=== PATIENT | male | born 1950 | race African-American/Black ===

== ENCOUNTER 2020-11-05 08:34 | Inpatient (IN) | payer OTHER ==
[~2020-11-05] VITALS: Ht 172.7 cm; Wt 113.4 kg
[2020-11-05 08:36] VITALS: BP 208/75
[2020-11-05 09:01] LABS: BE(vivo) -1.7 mmol/L (-2 to +3); HCO3 20.9 mmol/L (22.0-26.0); PCO2 29.7 mmHg (35.0-45.0); PO2 50.7 mmHg (80.0-100.0); pH 7.465 (7.360-7.450); sO2 88.5 % (92.0-98.0)
[2020-11-05 09:03] LABS: ABSOLUTE NEUTROPHILS 10.4 thou/uL (1.4-8.2); BASOPHILS 0.4 % (0.0-2.0); EOSINOPHILS 0.5 % (0.0-3.0); HEMATOCRIT 41.4 % (42.0-52.0); HEMOGLOBIN 13.5 gm/dL (14.0-18.0); LYMPHOCYTES 6.9 % (24.0-44.0); MCH 28.8 pg (26.0-34.0); MCHC 32.5 g/dL (28.0-37.0); MCV 88.6 fL (80.0-100.0); MONOCYTES 0.5 % (1.0-8.0); PLATELET COUNT 213 thou/uL (150-400); POLYS 91.7 % (36.0-66.0); RBC 4.67 mil/uL (4.50-6.00); RDW 13.7 % (10.5-14.5); WBC 11.4 thou/uL (4.0-11.0)
[2020-11-05 10:29] LABS: CALCIUM 8.9 mg/dL (8.5-10.1); CREATININE 1.6 mg/dL (0.7-1.3); POTASSIUM 3.8 mmol/L (3.5-5.1)
[2020-11-05 10:39] LABS: ALBUMIN 3.9 g/dL (3.4-5.0); DIRECT BILIRUBIN 0.4 mg/dL (<0.1-0.2); TOTAL BILIRUBIN 1.1 mg/dL (0.2-1.0); TOTAL PROTEIN 8.3 g/dL (6.4-8.2); TROPONIN-I 0.17 ng/mL (<0.06)
[2020-11-05 10:55] LABS: URINE BILIRUBIN NEGATIVE (Negative); URINE BLOOD 3+ (Negative); URINE CLARITY SL CLOUDY; URINE COLOR YELLOW; URINE GLUCOSE-RANDOM* NEGATIVE (Negative); URINE KETONES TRACE (Negative); URINE PROTEIN (DIPSTICK) 2+ (Negative); URINE UROBILINOGEN 0.2 E.U./dl (0.2-1.0)
[2020-11-05 10:57] LABS: URINE LEUKOCYTES-REFLEX 1+ (Negative); URINE NITRITE-REFLEX POSITIVE (Negative)
--- NOTE | 2020-11-05 11:07 | NUR ---
PATIENT , MARIBEL CALLED ASKING FOR UPDATE, NOTIFIED OF CURRENT STATUS.
[2020-11-05 11:08] LABS: CASTS None Seen /LPF (None Seen); CRYSTALS None Seen /LPF (None Seen); SQUAMOUS 0-3 Few /LPF (0-3)
[2020-11-05] MEDS ORDERED: JANUVIA100 MG PO (11:08)
[2020-11-05] MEDS ORDERED: COZAAR 25 MG TA25 MG PO (11:08)
[2020-11-05] MEDS ORDERED: HYDROCHLOROTH12.5 M2 PO (11:09)
[2020-11-05] MEDS ORDERED: SIMVASTATIN80 MG PO (11:09)
[2020-11-05 11:10] LABS: URINE RBC 3-10 Few /HPF (0-2); URINE WBC-REFLEX 0-5 Rare /HPF (0-5)
[2020-11-05] MEDS ORDERED: ASA81BEC PO (11:10)
[2020-11-05] MEDS ORDERED: VITAMIN D325 MC5 PO (11:11)
[2020-11-05 12:11] VITALS: BP 132/78
[2020-11-05 12:21] VITALS: BP 146/80
--- NOTE | 2020-11-05 12:50 | NUR ---
PT ORIENTED TO ROOM AND UNIT, BED LOW AND LOCKED, SIDE RAILS UPX3, CALL LIGHT IN REACH, TELE APPLIED. WILL CONTINUE TO ASSESS.
[2020-11-05] MEDS ORDERED: PLAVIX 75 MG TA75 MG PO (15:20)
--- NOTE | 2020-11-05 15:29 | EKG ---
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 NAVARRO : 1950 Requested By: Antoinette Trent Order Number: [id number] MD: Chadwick Bowen Measurements Intervals [place] Rate: 117 P: 0 HI: 119 QRS: 30 QRSD: 77 T: 53 QT: 359 QTc: 501 Interpretive Statements Sinus tachycardia Probable left atrial enlargement Borderline ST depression, anterolateral leads Prolonged QT interval No previous ECG available for comparison Electronically Signed On 11-05-2020 15:29:34 CDT by Chadwick Bowen [email or web address] <ELECTRONICALLY SIGNED> By: Chadwick Bowen MD, [facility] 11/05/20 1529 0840 0840 Chadwick Bowen MD, FACCindy /EPI
[2020-11-05 16:11] LABS: HEMATOCRIT 39.4 % (42.0-52.0); HEMOGLOBIN 12.6 gm/dL (14.0-18.0); MCV 87.6 fL (80.0-100.0); RBC 4.5 mil/uL (4.50-6.00); RDW 13.5 % (10.5-14.5)
[2020-11-05 16:19] LABS: WBC 30.4 thou/uL (4.0-11.0)
[2020-11-05 16:28] LABS: APTT 22.7 Seconds (24.5-32.8); INR 1.05; PROTIME 11.4 Seconds (9.3-11.4)
--- NOTE | 2020-11-05 17:02 | NUR ---
START HEPARIN GTT AND PT WILL BE NPO AFTER MIDNIGHT FOR HEART CATH IN THE AM.
[2020-11-05 20:14] VITALS: BP 127/70
[2020-11-06] VITALS (16 sets, daily range): BP systolic 120–186; BP diastolic 61–84
[2020-11-06 03:44] LABS: CHOLESTEROL 125 mg/dL (<200); HDL CHOLESTEROL 63 mg/dL (>40); LDL CHOLESTEROL 53 mg/dL (<100); TRIGLYCERIDE 45 mg/dL (<150); VLDL 9 mg/dL (<40)
[2020-11-06 04:11] LABS: SERUM ASSESSMENT Clear; TROPONIN-I 0.69 ng/mL (<0.06)
--- NOTE | 2020-11-06 07:43 | NUR ---
PROGRESS PT A/O X 4. NOT OOB THHIS SHIFT BUT ABLE TO AMBULATE INDEPENDENTLY NORMALLY. HEPARIN GTT INFUSING AT 10ML/U/HR APTT HANSA AT 2330 AND RESULTS WAS 77 DRIP DECREASED BY 2ML/U/HR NEXT APTT AT 030. IV ANTIBIOTICS GIVEN ORDERED. HANCOCK IN PLACE DRAINING [place] AMOUNT OF URINE. NPO AT MIDNIGHT DENIES PAIN TELEMETRY INTACT READING SR. PLAN TO GO TO HALL TENDER TODAY FOR PCI.
[2020-11-06 07:47] LABS: HEMATOCRIT 36.8 % (42.0-52.0); HEMOGLOBIN 11.6 gm/dL (14.0-18.0); MCH 27.6 pg (26.0-34.0); MCHC 31.5 g/dL (28.0-37.0); MCV 87.4 fL (80.0-100.0); PLATELET COUNT 198 thou/uL (150-400); RBC 4.21 mil/uL (4.50-6.00); RDW 13.6 % (10.5-14.5); WBC 29.5 thou/uL (4.0-11.0)
[2020-11-06 11:12] LABS: ABSOLUTE NEUTROPHILS 28.3 thou/uL (1.4-8.2); ANISOCYTOSIS SLIGHT; POIKILOCYTOSIS SLIGHT
--- NOTE | 2020-11-06 11:38 | 2DMMODE ---
[facility] [place] [address] 2 D/M-MODE ECHOCARDIOGRAM Name: KENNETH ENGLISH Room #: 356-P ADM IN M.R.#: [id number] Admission: 11/05/20 Attend Phys: Abad Booth MD Discharge: Date of : 48 Report #: [id number] THIS REPORT FOR: cc: Demetrius Singh MD, Steven A. MD Santiago, Patrick MD [facility] ~ APPROVED REPORT Study performed: 11/06/2020 09:15:29 EXAM: Comprehensive 2D, Doppler, and color-flow Echocardiogram Patient Location: Bedside Room #: 356 Status: routine BSA: 2.22 HR: 64 bpm BP: 132/74 mmHg Rhythm: NSR Other Information Study Quality: Adequate Indications Diabetes Dyspnea Elevated Troponin Hypertension/HDD 2D Dimensions IVSd: 8.56 (7-11mm) LVOT Diam: 21.84 (18-24mm) LVDd: 52.13 mm PWd: 10.40 (7-11mm) Ascending Ao: 37.22 (22-36mm) LVDs: 33.81 (25-40mm) Left Atrium: 36.90 (27-40mm) Aortic Root: 26.91 mm IVC: 11.00 mm Volumes Left Atrial Volume (Systole) Single Plane 4CH: 62.35 mL Single Plane 2CH: 38.78 mL LA ESV Index: 25.00 mL/m2 Aortic Valve AoV Peak Silvino.: 0.96 m/s AO Peak Gr.: 3.72 mmHg LVOT Max P.41 mmHg [facility] [address] [place] [address] 2 D/M-MODE ECHOCARDIOGRAM Name: KENNETH ENGLISH Room #: 356-P [facility] IN Nuzhat.#: [id number] Admission: 11/05/20 Attend Phys: Abad Booth MD Discharge: Date of : 48 Report #: [id number] LVOT Max V: 0.92 m/s BILLY Vmax: 3.58 cm2 Mitral Valve E/A Ratio: 0.8 MV Decel. Time: 206.60 ms MV E Max Silvino.: 0.83 m/s MV A Silvino.: 1.08 m/s MV PHT: 59.91 ms IVRT: 106.11 ms Pulmonary Valve PV Peak Silvino.: 0.64 m/s PV Peak Gr.: 1.62 mmHg Pulmonary Vein P Vein S: 0.61 m/s P Vein A: 0.25 m/s P Vein D: 0.34 m/s P Vein A Dur.: 92.3 msec P Vein S/D Ratio: 1.79 Left Ventricle The left ventricle is normal size. There is normal LV segmental wall motion. There is normal left ventricular wall thickness. Left ventricular systolic function is normal. The left ventricular ejection fraction is within the normal range. LVEF is 60-65%. Grade I - abnormal relaxation pattern. Right Ventricle The right ventricle is normal size. The right ventricular systolic function is normal. Atria The left atrium size is normal. The right atrium size is normal. Aortic Valve The aortic valve is normal in structure. No aortic regurgitation is present. There is no aortic valvular stenosis. Mitral Valve The mitral valve is normal in structure. There is no mitral valve regurgitation noted. No evidence of mitral valve stenosis. Tricuspid Valve The tricuspid valve is normal in structure. There is no tricuspid valve regurgitation noted. [facility] [place] [address] 2 D/M-MODE ECHOCARDIOGRAM Name: KENNETH ENGLISH Room #: 356-P ADM IN M.R.#: [id number] Admission: 11/05/20 Attend Phys: Abad Booth MD Discharge: Date of : 48 Report #: [id number] Pulmonic Valve The pulmonary valve is normal in structure. There is no pulmonic valvular regurgitation. Great Vessels The aortic root is normal in size. IVC is normal in size and collapses >50% with inspiration. Pericardium There is no pericardial effusion. <Conclusion> Normal left ventricular size/wall thickness Ejection fraction 60-65% Normal right ventricular size/function Normal atrial size Color-flow Doppler study was performed of the aortic/mitral/tricuspid/pulmonary valve. Normal aortic/mitral valve structure and function No tricuspid valve insufficiency Normal aortic root size No pericardial effusion. <ELECTRONICALLY SIGNED> By: Chadwick Bowen MD, FACC 11/06/20 1138 1138 1138 Chadwick Bowen MD, FACC /INF
[2020-11-06 11:49] LABS: CALCIUM 8.5 mg/dL (8.5-10.1); CREATININE 1.8 mg/dL (0.7-1.3); POTASSIUM 4.4 mmol/L (3.5-5.1)
--- NOTE | 2020-11-06 14:03 | NUR ---
INITIAL ASSESSMENT: Received consult. SW reviewed chart and spoke with nursing and attending physician. Pt was admitted from home due to pulmonary edema. Pt had negative COVID test on 11/05. 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 No interventions needed. Pt is on IV abx and IV steroids. SW met with pt and at bedside. Introduced role of SW. Pt is alert/orientated x 4. Pt and his live in an apt. 5 steps to enter and no steps inside. Pt does have a cane. They do have a walker, BSC and shower chair to use if needed. No hx of services or post-acute placement. Pt's PCP is Dr. Demetrius Singh. Pt states he thinks he will discharge home tomorrow. PT ordered to evaluate pt for any discharge needs. Pt has a lifeline alert that he wears around his neck. Pt's is not sure where his lifeline alert necklace ended up. SW checked with ER staff and public safety. It is not in either location. No discharge needs identified at this time, but is available to assist should needs arise.
--- NOTE | 2020-11-06 15:25 | CATHLAB ---
[facility] [place] [address] INVASIVE PROCEDURE REPORT Name: KENNETH ENGLISH Room #: 356-P ADM IN M.R.#: [id number] Admission: 11/05/20 Attend Phys: Abad Booth MD Discharge: Date of : 48 Report #: [id number] THIS REPORT FOR: cc: Demetrius Singh MD, Steven A. MD Park, Jin S. MD ~ APPROVED REPORT Study performed: 11/06/2020 10:48:57 Patient Details Patient Status: In-Patient Room #: The patient is a 70 year-old male Event Personnel Tree Aragon Sql Bi Developer, Ashley Bryant RTR Monitor, Soni Dasilva RTR Monitor, Sherry Roy RN RN, Aguila Knight RTR Scrub Procedures Performed Left Heart Cath w/or w/o Coronaries [id number] [facility] Art Access - R femoral artery* 21712 Initial Mod Sed Same Phys/QHP Gr5y 975371 Hemostasis with Manual pressure Indication Non-STEMI , Dyspnea Risk Factors HypercholesterolemiaPhysical Activity, Hypertension, Diabetes Procedure Narrative The patient was brought urgently to the Cardiac Catheterization Laboratory and was prepped and draped in a sterile manner. The Right Groin^ was infiltrated with 1% Lidocaine subcutaneous anesthesia. A PINNACLE 4FR Sheath #[id number] sheath was inserted into the RFA^. Coronary angiography was performed using coronary diagnostic catheters. The right coronary system was accessed and visualized with a JR4 catheter. The left coronary system was accessed and visualized with a JL4 catheter. The left ventricle was accessed and visualized with a PIGTAIL catheter. Hemostasis was obtained with manual pressure following sheath removal without any complications. The patient tolerated the procedure well and there were no complications associated with the procedure. There was no hematoma. [facility] [address] [place] [address] INVASIVE PROCEDURE REPORT Name: KENNETH ENGLISH Room #: 356-[facility] IN .R.#: [id number] Admission: 11/05/20 Attend Phys: Abad Booth MD Discharge: Date of : 48 Report #: [id number] Intraoperative Conscious Sedation Sedation start time: 11:38 Case end Time: 12:10 Fentanyl 50 mcg Versed 1 mg Fluoro Time: 2.40 minutes Dose: DAP 9514.50 cGycm2 1275 mGy Contrast Type and Amount: Visipaque 45 ml Coronary Angiography The patient's coronary anatomy is right dominant. Diagnostic Cath Left Main Left main artery is a short segment, appears angiographically normal. LAD The LAD is a moderate-sized caliber vessel, traverses the anterior wall and wraps around the apex. There is mild disease in the proximal and mid segments, 20%. Diagonal 1 This is a patent vessel, with no flow-limiting lesions. Divides into 2 branches. Diagonal 2 This is a moderate-sized caliber vessel, patent with no flow-limiting lesions. Circumflex The left circumflex artery is a moderate-sized caliber vessel, appears angiographically normal. OM1 This is a moderate-sized caliber vessel, patent with no flow-limiting lesions. OM2 This is a moderate-sized caliber vessel, patent with no flow-limiting lesions. Right Coronary The RCA is a dominant vessel with mild disease in the midsegment, 20%. R PDA This is a moderate-sized caliber vessel, patent with no flow-limiting lesions. RPLV This is a moderate-sized caliber vessel, patent with no flow-limiting lesions. Left Ventriculography Left Ventriculography was not performed. Ejection Fraction was >55% based off patient's Echocardiogram. An LVEDP was measured and there is no gradient across the outflow tract. Hemodynamics The aortic pressure is 143/77 mmHg with a mean of 86 mmHg. The left ventricular pressure is 146/22 mmHg with a mean of mmHg. The left ventricular end diastolic pressure is 28 mmHg. Pullback from the left ventricle to the aorta revealed no gradient across the aortic valve. [facility] [address] [place] [address] INVASIVE PROCEDURE REPORT Name: TAMEKAKENNETH Room #: 356-P [facility] IN M.R.#: [id number] Admission: 11/05/20 Attend Phys: Abad Booth MD Discharge: Date of : 48 Report #: [id number] Conclusion 1. There is mild, nonobstructive disease in the LAD and RCA. 2. This is a right dominant system. 3. There is normal LV systolic function. 4. Recommend risk factor management. <ELECTRONICALLY SIGNED> By: Tree Aragon MD 11/06/20 1525 1525 1525 Tree Aragon MD /INF
--- NOTE | 2020-11-06 19:30 | NUR ---
RN ASSUMED PT'S CARE AT 0700AM, PT IS A&OX3, PT HAS PCI PROCEDURE DONE TODAY, PT WAS TOLERATED THE PROCEDURE WELL , PT'S R GROIN ART ACCESS AREA DOES NOT HAVE HEMATOMA BY THIS TIME, PT'S VS ARE STABLE, PT DENIES PAIN AND SOB AT DAY SHIFT.
[2020-11-07 04:51] VITALS: BP 155/79
[2020-11-07 06:10] LABS: HEMATOCRIT 36.6 % (42.0-52.0); HEMOGLOBIN 11.5 gm/dL (14.0-18.0); MCH 27.5 pg (26.0-34.0); MCHC 31.4 g/dL (28.0-37.0); MCV 87.5 fL (80.0-100.0); RBC 4.18 mil/uL (4.50-6.00); RDW 13.9 % (10.5-14.5); WBC 26.1 thou/uL (4.0-11.0)
[2020-11-07 06:24] LABS: CALCIUM 8.1 mg/dL (8.5-10.1); CREATININE 1.7 mg/dL (0.7-1.3); POTASSIUM 4.1 mmol/L (3.5-5.1)
[2020-11-07 07:54] VITALS: BP 143/66
[2020-11-07 11:23] VITALS: BP 152/69
[2020-11-07 15:34] VITALS: BP 136/64
--- NOTE | 2020-11-07 18:26 | NUR ---
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
[2020-11-07 19:38] VITALS: BP 136/54
[2020-11-08] VITALS (7 sets, daily range): BP systolic 115–187; BP diastolic 68–90
--- NOTE | 2020-11-08 05:32 | NUR ---
PT RESTING IN BED THIS SHIFT. SB TO SR ON MONITOR. DENIES NEEDS. USES CALL LIGHT APPROPRIATELY. WILL CONTINUE TO MONITOR.
[2020-11-08 05:51] LABS: HEMATOCRIT 37.4 % (42.0-52.0); HEMOGLOBIN 11.9 gm/dL (14.0-18.0); MCH 27.8 pg (26.0-34.0); MCHC 31.9 g/dL (28.0-37.0); MCV 87.3 fL (80.0-100.0); RBC 4.28 mil/uL (4.50-6.00); RDW 13.8 % (10.5-14.5); WBC 21.2 thou/uL (4.0-11.0)
--- NOTE | 2020-11-08 16:22 | NUR ---
RN ASSUMED PT'S CARE AT 0700AM, PT IS A&OX4, PT IS CONTINUING IV ABX, PT GETS UP TO BATH ROOM AND CHAIR WITH ASSIST, PT'S HANCOCK CATHETER HAS REMOVED DC , PT HAS VOID URINE WITHOUT DIFFICULT. PT DENIES PAIN AND SOB BY THIS TIME.
[2020-11-09 04:00] VITALS: BP 135/90
[2020-11-09 06:01] LABS: HEMOGLOBIN 12.8 gm/dL (14.0-18.0); MCH 28.1 pg (26.0-34.0); MCHC 31.9 g/dL (28.0-37.0); RBC 4.54 mil/uL (4.50-6.00); RDW 13.7 % (10.5-14.5); WBC 16.8 thou/uL (4.0-11.0)
[2020-11-09 06:05] LABS: PLATELET COUNT 132 thou/uL (150-400)
--- NOTE | 2020-11-09 06:38 | NUR ---
PATIENT REMAINS A/OX4. AFEBRILE. VSS. PRECEDURE SITE CLEAN DRY AND INTACT. ASSIST X1. DENIES NEEDS. WILL MONITOR
[2020-11-09 06:50] LABS: CREATININE 1.4 mg/dL (0.7-1.3); MAGNESIUM 2.3 mg/dL (1.8-2.4); POTASSIUM 4.1 mmol/L (3.5-5.1)
[2020-11-09 07:00] VITALS: BP 171/85
[2020-11-09 07:12] LABS: ABSOLUTE NEUTROPHILS 12.8 thou/uL (1.4-8.2); MYELOCYTES 1 %
[2020-11-09] MEDS ORDERED: HYDRALAZINE 2525 MG PO (11:19)
[2020-11-09] MEDS ORDERED: LEVOFLOXACIN500 MG PO (11:19)
[2020-11-09] MEDS ORDERED: PREDNISONE 20 M20 M1 PO (11:19)
[2020-11-09] MEDS ORDERED: LOPRESSOR50 PO (11:19)
[2020-11-09 12:38] VITALS: BP 171/85
[2020-11-09 13:36] VITALS: BP 160/70
--- NOTE | 2020-11-09 14:17 | NUR ---
RN ASSUMED PT'S CARE AT 700AM, PT IS A&OX3, PT IS ON ROOM AIR , PT'S VS ARE STABLE, PT DENIES SOB AND PAIN, PT CAN GET UP TO BATH ROOM WITH WALKER, RN RECEIVED ORDER TO DC PT TO HOME, PT'S IV ABX HAS CHANGED TO PO.
--- NOTE | 2020-11-09 15:02 | NUR ---
DISCHARGE NOTE: SW reviewed chart and spoke with nursing and attending physician. Pt is medically stable for discharge home today. Orders written for HH services. Pt also needing a roller walker. SW met with pt and spouse at bedside to discuss discharge plan. Pt's did find pt's Lifeline alert pendant that he wears around his neck. Pt's asking for document to be notarized. SW explained that [facility] will only notarize [facility] Healthcare DPOA documentation. Pt's verbalized understanding. Options provided for HH agencies and [employer] companies. No preference voiced. SW confirmed pt's home address and phone number. SW contacted [facility] liaison for roller walker. Script obtained and provided to [facility]. search planner to fax HH referral and discharge ppwk to [facility] . Contact info for HH and [facility] placed in pt's discharge summary. Pt's to provide transportation home. No additional SW needs identified at this time, but is available to assist should needs arise.
--- NOTE | 2020-11-09 17:00 | NUR ---
REFERRAL FAXED TO [facility] SPOKE WITH WITH [facility] IN INTAKE SHE CAN ACCEPT. DC ORDERS/SUMMARY FAXED TO [facility] RECEIVED CONFIRMAITON THEY WILL START VISITS TOMORROW AND WILL ARRANGE TIME WITH PT.
--- NOTE | 2020-11-09 20:14 | NUR ---
PT WAS A&OX4, PT'S VS ARE STABLE, RN RECEIVED ORDER TO DC PT TO HOME, RN HAD GAVING DC TEACHING , PT AND PT'S UNDERSTANDED WELL. 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
== END 2020-11-09 14:59 | disposition home health service (06) | DRG 871 ==
LOC: ER 08:34 → 3W 11:51 → EDBD 11:51 → EROBS 11:51 → 3W 13:30
PROVIDERS: Emergency Medicine; Internal Medicine Cardiovascular Disease; Nurse Practitioner; ADMIT Internal Medicine; ATTEND Internal Medicine
PROC: 4A023N7 Measurement of Cardiac Sampling and Pressure, Left Heart, Percutaneous Approach (ICD-10-PCS; principal; 2020-11-06)
PROC: B211YZZ Fluoroscopy of Multiple Coronary Arteries using Other Contrast (ICD-10-PCS; principal; 2020-11-06)
DX: A41.9 Sepsis, unspecified organism (principal); J96.01 Acute respiratory failure with hypoxia; N17.0 Acute kidney failure with tubular necrosis; J18.9 Pneumonia, unspecified organism; I21.4 Non-ST elevation (NSTEMI) myocardial infarction; G92 Toxic encephalopathy; I50.31 Acute diastolic (congestive) heart failure; N39.0 Urinary tract infection, site not specified; I16.1 Hypertensive emergency; I13.0 Hypertensive heart and chronic kidney disease with heart failure and stage 1 through stage 4 chronic kidney disease, or unspecified chronic kidney disease; B96.89 Other specified bacterial agents as the cause of diseases classified elsewhere; E78.5 Hyperlipidemia, unspecified; E11.40 Type 2 diabetes mellitus with diabetic neuropathy, unspecified; F17.210 Nicotine dependence, cigarettes, uncomplicated; E66.01 Morbid (severe) obesity due to excess calories; N18.9 Chronic kidney disease, unspecified; E11.22 Type 2 diabetes mellitus with diabetic chronic kidney disease; I25.10 Atherosclerotic heart disease of native coronary artery without angina pectoris; Z20.822 Contact with and (suspected) exposure to COVID-19; Z72.89 Other problems related to lifestyle; Z68.38 Body mass index [BMI] 38.0-38.9, adult; Z79.84 Long term (current) use of oral hypoglycemic drugs; Z79.82 Long term (current) use of aspirin; Z79.899 Other long term (current) drug therapy
CPT/HCPCS: 10879

== ENCOUNTER → 2020-11-19 | Outpatient (CLI) | payer OTHER ==
[~2020-11-19] MED LIST: ASA81BEC PO; COZAAR 25 MG TA25 MG PO; HYDRALAZINE 2525 MG PO; HYDROCHLOROTH12.5 M2 PO; JANUVIA100 MG PO; LEVOFLOXACIN500 MG PO; LOPRESSOR50 PO; PLAVIX 75 MG TA75 MG PO; PREDNISONE 20 M20 M1 PO; SIMVASTATIN80 MG PO; VITAMIN D325 MC5 PO
== END ==
LOC: SJCVC 09:45
PROVIDERS: ATTEND Internal Medicine
DX: I10 Essential (primary) hypertension (principal); I25.10 Atherosclerotic heart disease of native coronary artery without angina pectoris; E11.9 Type 2 diabetes mellitus without complications; E78.5 Hyperlipidemia, unspecified; I25.2 Old myocardial infarction; F17.290 Nicotine dependence, other tobacco product, uncomplicated; Z98.890 Other specified postprocedural states; Z68.39 Body mass index [BMI] 39.0-39.9, adult; Z79.82 Long term (current) use of aspirin; Z79.899 Other long term (current) drug therapy

== ENCOUNTER → 2020-12-17 | Outpatient (CLI) | payer OTHER | LOC: SJCVC 10:26 | PROVIDERS: ATTEND Internal Medicine | DX: I10 Essential (primary) hypertension (principal); I25.10 Atherosclerotic heart disease of native coronary artery without angina pectoris; E11.9 Type 2 diabetes mellitus without complications; E78.5 Hyperlipidemia, unspecified; J96.90 Respiratory failure, unspecified, unspecified whether with hypoxia or hypercapnia; I25.2 Old myocardial infarction; F17.210 Nicotine dependence, cigarettes, uncomplicated; Z79.82 Long term (current) use of aspirin; Z79.899 Other long term (current) drug therapy ==

== ENCOUNTER → 2021-03-19 | Outpatient (CLI) | payer OTHER | LOC: SJCVC 09:16 | PROVIDERS: ATTEND Internal Medicine | DX: I10 Essential (primary) hypertension (principal); E11.9 Type 2 diabetes mellitus without complications; E78.5 Hyperlipidemia, unspecified; F17.290 Nicotine dependence, other tobacco product, uncomplicated; Z79.899 Other long term (current) drug therapy; Z79.82 Long term (current) use of aspirin ==

== ENCOUNTER → 2021-05-13 | Outpatient (CLI) | payer OTHER ==
[~2021-05-13] MED LIST changes: +HYDRALAZINE 2525 M1 PO; +HYDROCHLOROTHIA25 M1 PO; +TOPROL XL25 MG PO
== END ==
LOC: LAB 09:52
PROVIDERS: ATTEND Student in an Organized Health Care Education/Training Program
DX: Z01.812 Encounter for preprocedural laboratory examination (principal); Z20.822 Contact with and (suspected) exposure to COVID-19

== ENCOUNTER → 2021-05-17 | Outpatient (CLI) | payer OTHER ==
[~2021-05-17] VITALS: Ht 172.7 cm; Wt 109.3 kg
--- NOTE | 2021-05-19 13:08 | PATH ---
[facility] [address] [address] PATHOLOGY RPT PROCEDURE Name: DENNIS ENGLISH Room #: REG OLEKSANDR Collado#: [id number] Admission: 05/17/21 Date of : 46 Discharge: Report #: [id number] Path Case #: [id number] [facility] Accession Number: [id number] . 01 Material submitted: . PART A: colon - ASCENDING COLON POLYP. Modifiers: ascending PART B: colon - TRANSVERSE COLON POLYP. Modifiers: transverse . 01 Clinical history: . SCREENING COLON POLYP, DIVERTICULOSIS . 02 Diagnosis: A. Polyp, ascending colon polyp, endoscopic biopsy: - Tubular adenoma. - Negative for high-grade dysplasia. . B. Polyp, transverse colon polyp, endoscopic biopsy: - Tubular adenoma. - Negative for high-grade dysplasia. (IUV:pit; 05/19/2021) QTP 05/19/2021 0904 Local . 02 Electronically signed: . Marija Bass MD, Pathologist NPI- [id number] . 01 Gross description: . A. The specimen is received in formalin, labeled "Dnenis English, ascending colon polyp" and consists of a florence polypoid tissue measuring 0.6 x 0.3 x 0.3 cm. The surgical margin is inked black. The specimen is bisected and submitted entirely in A1. . B. The specimen is received in formalin, labeled "Dennis English, transverse colon polyp" and consists of a florence polypoid tissue measuring 0.6 x 0.3 x 0.2 cm. The surgical margin is inked black. The specimen is bisected and submitted entirely in B1. (BEAVER; 05/17/2021) DKA/DKA 05/17/2021 1644 Local . 02 Pathologist provided ICD-10: D12.2, D12.3 . 02 CPT . 432493, [id number] Specimen Comment: A courtesy copy of this report has been sent to [phone] Specimen Comment: [id number] [address] PATHOLOGY RPT PROCEDURE Name: DENNIS ENGLISH Room #: REG OLEKSANDR Collado#: [id number] Admission: 05/17/21 Date of : 48 Discharge: Report #: [id number] Path Case #: [id number] Specimen Comment: Report sent to / DR BRAVO Performed at: [address] [facility] [address], [place], [place] [id number] MD Tayo Keys MD Phone: [phone] Performed at: [address] [id number] MD Marija Bass MD Phone: [phone]
== END | disposition home or self-care (01) ==
LOC: GI
PROVIDERS: ATTEND Internal Medicine Gastroenterology
DX: Z12.11 Encounter for screening for malignant neoplasm of colon (principal); D12.3 Benign neoplasm of transverse colon; D12.2 Benign neoplasm of ascending colon; K57.30 Diverticulosis of large intestine without perforation or abscess without bleeding; I10 Essential (primary) hypertension; E78.00 Pure hypercholesterolemia, unspecified; E11.9 Type 2 diabetes mellitus without complications; F17.210 Nicotine dependence, cigarettes, uncomplicated; E78.5 Hyperlipidemia, unspecified; Z98.890 Other specified postprocedural states; Z79.899 Other long term (current) drug therapy; Z85.46 Personal history of malignant neoplasm of prostate
CPT/HCPCS: 62110; 62900

== ENCOUNTER 2021-07-21 02:35 | Inpatient (IN) | payer OTHER ==
[~2021-07-21] VITALS: Ht 172.7 cm; Wt 110.0 kg
[2021-07-21] VITALS (10 sets, daily range): BP systolic 141–186; BP diastolic 48–85
[2021-07-21 03:11] LABS: ABSOLUTE NEUTROPHILS 12.3 thou/uL (1.4-8.2); BASOPHILS 0.3 % (0.0-2.0); EOSINOPHILS 0.1 % (0.0-3.0); HEMATOCRIT 38.1 % (42.0-52.0); HEMOGLOBIN 12.6 gm/dL (14.0-18.0); LYMPHOCYTES 10.6 % (24.0-44.0); MCH 28.6 pg (26.0-34.0); MCV 86.6 fL (80.0-100.0); MONOCYTES 7.6 % (1.0-8.0); PLATELET COUNT 193 thou/uL (150-400); POLYS 81.4 % (36.0-66.0); RDW 13.9 % (10.5-14.5); WBC 15.1 thou/uL (4.0-11.0)
[2021-07-21 03:22] LABS: URINE BILIRUBIN NEGATIVE (Negative); URINE BLOOD NEGATIVE (Negative); URINE CLARITY CLOUDY; URINE COLOR YELLOW; URINE GLUCOSE-RANDOM* NEGATIVE (Negative); URINE KETONES NEGATIVE (Negative); URINE PROTEIN (DIPSTICK) 1+ (Negative); URINE UROBILINOGEN 0.2 E.U./dl (0.2-1.0)
[2021-07-21 03:25] LABS: URINE LEUKOCYTES-REFLEX 2+ (Negative); URINE NITRITE-REFLEX POSITIVE (Negative)
[2021-07-21 03:25] LABS: CREATININE 1.7 mg/dL (0.7-1.3); POTASSIUM 3.7 mmol/L (3.5-5.1)
[2021-07-21 03:35] LABS: ALBUMIN 3.4 g/dL (3.4-5.0); TOTAL BILIRUBIN 1.1 mg/dL (0.2-1.0); TOTAL PROTEIN 7.7 g/dL (6.4-8.2)
[2021-07-21 03:49] LABS: BACTERIA-REFLEX >30 Many /HPF (None Seen); CASTS None Seen /LPF (None Seen); CRYSTALS None Seen /LPF (None Seen); MUCUS 0-3 Light strn/LPF (None Seen); SQUAMOUS 0-3 Few /LPF (0-3); URINE RBC 1-2 Rare /HPF (NONE SEEN); WBC CLUMPS Moderate (None Seen)
--- NOTE | 2021-07-21 07:18 | EKG ---
[address] [email or web address] [address] ELECTROCARDIOGRAM REPORT Name: KENNETH ENGLISH Room #: 212-P ADM IN M.R.#: [id number] Admission: 07/21/21 Attend Phys: Abad Booth MD Discharge: Date of : 48 Report #: [id number] 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 : 1950 Requested By: Caden Salgado Order Number: [id number] MD: Chadwick Bowen Measurements Intervals Wanda Rate: 85 P: 33 MD: 230 QRS: 23 QRSD: 88 T: 50 QT: 370 QTc: 440 Interpretive Statements Sinus rhythm Prolonged MD interval Probable left atrial enlargement Minimal ST depression, anterolateral leads Compared to ECG 11/05/2020 08:40:30 First degree AV block now present Sinus tachycardia no longer present Prolonged QT interval no longer present ST (T wave) deviation still present Electronically Signed On 07-21-2021 7:18:50 MOLDING FITTER by Chadwick Bowen [email or web address] <ELECTRONICALLY SIGNED> By: Chadwick Bowen MD, FACC 07/21/21 0718 Chadwick Bowen MD, [facility] /EPI
--- NOTE | 2021-07-21 16:08 | 2DMMODE ---
[facility] [address] [place] [address] 2 D/M-MODE ECHOCARDIOGRAM Name: KENNETH ENGLISH Room #: 212-P ADM IN M.R.#: [id number] Admission: 07/21/21 Attend Phys: Abad Booth MD Discharge: Date of : 48 Report #: [id number] THIS REPORT FOR: cc: Sole Charles MD, Nora P. MD Santiago, Patrick MD [facility] ~ APPROVED REPORT Study performed: 07/21/2021 14:17:32 EXAM: Comprehensive 2D, Doppler, and color-flow Echocardiogram Patient Location: Bedside Room #: 212 Status: routine BSA: 2.23 HR: 78 bpm BP: 150/70 mmHg Rhythm: NSR Other Information Study Quality: Adequate Indications Diabetes Elevated Troponin Hypertension/HDD 2D Dimensions IVC: 14.00 mm Aortic Valve AoV Peak Silvino.: 1.34 m/s AO Peak Gr.: 7.13 mmHg LVOT Max P.22 mmHg LVOT Max V: 1.25 m/s Mitral Valve E/A Ratio: 0.7 MV Decel. Time: 261.78 ms MV E Max Silvino.: 0.92 m/s MV A Silvino.: 1.40 m/s MV PHT: 75.92 ms IVRT: 124.57 ms Pulmonary Valve [facility] [address] 2 D/M-MODE ECHOCARDIOGRAM Name: KENNETH ENGLISH Room #: 212-P ADM IN M.R.#: [id number] Admission: 07/21/21 Attend Phys: Abad Booth MD Discharge: Date of : 48 Report #: [id number] PV Peak Silvino.: 1.06 m/s PV Peak Gr.: 4.47 mmHg Pulmonary Vein P Vein S: 0.43 m/s P Vein A: 0.32 m/s P Vein D: 0.34 m/s P Vein A Dur.: 110.7 msec P Vein S/D Ratio: 1.26 Left Ventricle The left ventricle is normal size. There is normal LV segmental wall motion. Mild concentric left ventricular hypertrophy. Left ventricular systolic function is normal. The left ventricular ejection fraction is within the normal range. LVEF is 55-60%. Grade I - abnormal relaxation pattern. Right Ventricle The right ventricle is normal size. The right ventricular systolic function is normal. Atria The left atrium size is normal. The right atrium size is normal. Aortic Valve Aortic valve is grossly normal in structure. No aortic regurgitation is present. There is no aortic valvular stenosis. Mitral Valve The mitral valve is normal in structure. There is no mitral valve regurgitation noted. No evidence of mitral valve stenosis. Tricuspid Valve The tricuspid valve is normal in structure. There is no tricuspid valve regurgitation noted. Pulmonic Valve The pulmonary valve is normal in structure. There is no pulmonic valvular regurgitation. Great Vessels The aortic root is normal in size. IVC is normal in size and collapses >50% with inspiration. Pericardium There is no pericardial effusion. <Conclusion> [facility] [address] [place] [address] 2 D/M-MODE ECHOCARDIOGRAM Name: KENNETH ENGLISH Room #: 212-P ADM IN M.R.#: [id number] Admission: 07/21/21 Attend Phys: Abad Booth MD Discharge: Date of : 48 Report #: [id number] Normal left ventricle size with mild concentric hypertrophy Ejection fraction 60%, no obvious segmental wall motion normality Grade 1 diastolic dysfunction Normal right ventricle size Normal atrial size Normal aortic/mitral valve structure and function No tricuspid valve insufficiency No pericardial effusion Normal ascending aorta. <ELECTRONICALLY SIGNED> By: Chadwick Bowen MD, FACC 07/21/217 06 06 Chadwick Bowen MD, FACC /INF
[2021-07-22 03:07] LABS: HEMOGLOBIN 11.2 gm/dL (14.0-18.0); MCH 28.6 pg (26.0-34.0); MCV 86.6 fL (80.0-100.0); RBC 3.93 mil/uL (4.50-6.00); WBC 10.3 thou/uL (4.0-11.0)
[2021-07-22 03:43] LABS: CALCIUM 7.9 mg/dL (8.5-10.1); CREATININE 1.5 mg/dL (0.7-1.3); POTASSIUM 3.2 mmol/L (3.5-5.1)
--- NOTE | 2021-07-22 04:09 | NUR ---
Assumed pt care at 1900. Pt is alert and oriented. No sign of distress noted in pt. Pt is stable. Fall precaution in place. Denies pain. Assessment completed and documented. Scheduled meds administered to pt. No acute event during the night. Continue to monitor. Pt is seen by urologist.
[2021-07-22 04:16] VITALS: BP 125/62
[2021-07-22 08:51] VITALS: BP 153/54
[2021-07-22 12:19] VITALS: BP 152/51
--- NOTE | 2021-07-22 14:43 | NUR ---
PATIENT ADMITTED FOR UROSEPSIS. CHART REVIEWED AND DISCUSSED WITH CARE TEAM. CM MET WITH PT THIS DAY. PT ASLEEP AND DID NOT AROUSE FOR ASSESSMENT. WILL CONTINUE TO FOLLOW FOR DC NEEDS.
--- NOTE | 2021-07-22 15:53 | NUR ---
PATIENT ADMITTED FOR SEPSIS/UTI, ELEVATED TROPONIN. CHART REVIEWED AND DISCUSSED CASE WITH CARE TEAM. CM MET WITH PT THIS DAY. PT DID NOT AROUSE FOR ASSESSMENT. THIS CM CALLED AND SPOKE TO PTS TONI. CM ROLE INTRODUCED. PTS REPORTS PT BEGAN NOT FEELING WELL THE LAST 72 HOURS. NORMALLY HE AMBULATES WITH A CANE BUT HE BEGAN USING HIS WALKER AND STILL HAVING DIFFICULTY. PT LIVES AT IN AN APARTMENT WITH HIS . HIS SON IS ALSO A CONTACT FOR PT. KENNETH ENGLISH JR. [phone]. PTS REPORTS HIS FRIEND JAYLEEN GUAJARDO IS ALSO A CONTACT. [phone]. PTS REPORTS THERE ARE 5 STAIRS TO GO INTO APARTMENT AND NONE ONCE INSIDE THE APARTMENT. PT HAS USED [facility] IN THE PAST FOR NSG AND PT. AGREEABLE TO USING THEM AGAIN ONCE MEDICALLY STABLE AND IT IS RECOMMENDED. NO ANTICIPATED DC OVER THE WEEKEND. CM WILL CONTINUE TO FOLLOW.
[2021-07-22 16:36] VITALS: BP 134/59
[2021-07-22 18:25] VITALS: BP 160/72
--- NOTE | 2021-07-22 18:46 | NUR ---
Pt has been A&Ox4, VS stable. Pt was afebrile until 1830 when CUFF PRESSER reported mild fever - tylenol was given. Pt worked with PT, OT and ST. Pt continues to have generalized weakness. Pt reports no pain. Pt had adbominal CAT Scan done in AM. Pt is resting comfortably in bed. Has some SOB during exertion and eating/drinking. Refused O2. Current concerns: coughing with oral intake. Continue to monitor.
[2021-07-22 19:24] VITALS: BP 132/71
[2021-07-23 03:43] VITALS: BP 160/76
[2021-07-23 07:30] VITALS: BP 146/81
[2021-07-23 11:00] VITALS: BP 123/43; BP 142/73
[2021-07-23 16:00] VITALS: BP 150/77
[2021-07-23 20:15] VITALS: BP 146/81
[2021-07-24 04:30] LABS: HEMATOCRIT 34.5 % (42.0-52.0); HEMOGLOBIN 11.1 gm/dL (14.0-18.0); MCH 28.1 pg (26.0-34.0); MCHC 32.2 g/dL (28.0-37.0); MCV 87.4 fL (80.0-100.0); RBC 3.94 mil/uL (4.50-6.00); RDW 14.4 % (10.5-14.5); WBC 7.6 thou/uL (4.0-11.0)
[2021-07-24 04:34] LABS: CALCIUM 7.8 mg/dL (8.5-10.1); CREATININE 1.2 mg/dL (0.7-1.3); MAGNESIUM 1.4 mg/dL (1.8-2.4); POTASSIUM 3.5 mmol/L (3.5-5.1)
[2021-07-24 04:45] VITALS: BP 133/55
[2021-07-24 08:58] VITALS: BP 144/67
[2021-07-24 12:00] VITALS: BP 150/66
[2021-07-24] MEDS ORDERED: CEFUROXIME500 MG PO (12:12)
[2021-07-24 13:09] VITALS: BP 144/67
== END 2021-07-24 14:30 | disposition home health service (06) | DRG 871 ==
LOC: ER 02:35 → EROBS 03:54 → 2N 03:54
PROVIDERS: Emergency Medicine; Nurse Practitioner Family; ADMIT Internal Medicine; ATTEND Internal Medicine
DX: A41.9 Sepsis, unspecified organism (principal); N17.0 Acute kidney failure with tubular necrosis; I21.4 Non-ST elevation (NSTEMI) myocardial infarction; N39.0 Urinary tract infection, site not specified; I50.32 Chronic diastolic (congestive) heart failure; Z20.822 Contact with and (suspected) exposure to COVID-19; E78.5 Hyperlipidemia, unspecified; E11.42 Type 2 diabetes mellitus with diabetic polyneuropathy; F17.210 Nicotine dependence, cigarettes, uncomplicated; R33.9 Retention of urine, unspecified; R53.81 Other malaise; I11.0 Hypertensive heart disease with heart failure; E66.9 Obesity, unspecified; B96.20 Unspecified Escherichia coli [E. coli] as the cause of diseases classified elsewhere; E87.6 Hypokalemia; E86.0 Dehydration; I25.2 Old myocardial infarction; Z68.36 Body mass index [BMI] 36.0-36.9, adult; Z85.46 Personal history of malignant neoplasm of prostate; Z71.6 Tobacco abuse counseling; Z79.82 Long term (current) use of aspirin; Z79.899 Other long term (current) drug therapy
CPT/HCPCS: 10081

== ENCOUNTER → 2021-09-20 | Outpatient (CLI) | payer BC ==
[~2021-09-20] MED LIST changes: +CEFUROXIME500 MG PO
== END ==
LOC: SJCVC 09:33
PROVIDERS: ATTEND Internal Medicine
DX: I10 Essential (primary) hypertension (principal); E11.9 Type 2 diabetes mellitus without complications; F17.200 Nicotine dependence, unspecified, uncomplicated; Z68.39 Body mass index [BMI] 39.0-39.9, adult; Z79.82 Long term (current) use of aspirin; Z79.899 Other long term (current) drug therapy